=== PATIENT | male | born 1955 | race African-American/Black ===

== ENCOUNTER 2016-10-08 05:31 | Emergency (ER) | payer OTHER ==
[~2016-10-08] VITALS: Ht 188 cm; Wt 73.0 kg
[2016-10-08 05:34] VITALS: BP 146/71; PULSE 101; RESP 15; TEMP 100.8; O2SAT 96
[2016-10-08 05:42] VITALS: BP 136/77; PULSE 98; TEMP 100.8; O2SAT 96
[2016-10-08] MEDS ORDERED: OXYC1TAB63 PO (05:44)
[2016-10-08] MEDS ORDERED: AUGM875T3 PO (05:44)
[2016-10-08 05:48] VITALS: TEMP 100.4
[2016-10-08] MEDS ORDERED: KETOROLAC TROMETHAMINE 30 MG/ML (IVP) VIAL IV PUSH ONE (06:00)
[2016-10-08] MEDS ORDERED: SODIUM CHLOR 0.9% 1000 ML INJ 1,000 ML IV ONE (06:00)
[2016-10-08] MEDS ORDERED: ONDANSETRON HCL 4 MG/2 ML VIAL IV ONE (06:00)
--- NOTE | 2016-10-08 06:01 | PD ---
HPI Chief Complaint: Fever Time Seen by Provider: 05:41 Travel History International Travel<30 days: Yes ([facility]) Contact w/Intl Traveler<30days: Yes Traveled to known affect area: No History of Present Illness HPI Pleasant 61-year-old male here with complaint of fever. Patient traveled to [place] to visit family and friends. He is originally from [place] but lives here in the [facility]. He returned on 10/02. He was feeling well until 10/05 when he developed generalized body aches, fevers and chills. notes that he's been having fevers up to 103. He does respond to Tylenol, Motrin but the fever promptly returns. He does not have any localizing symptoms, no chest pain, chest congestion, shortness of breath, abdominal pain, urinary symptoms. He does have some nausea and states that he feels as though he would be less symptomatic if he could vomit but has not thrown up. No neck stiffness. No recent sick contacts. Patient was seen yesterday at [facility]. He had blood work, CT of the head that showed possible mucosal thickening of the sinus and was diagnosed with sinusitis. Given prescription for Augmentin which she has taken 1 dose of. PFSH Past Medical History Medical History: Denies Significant Hx Past Surgical History Appendectomy: Yes Social History Alcohol Use: Yes ([facility]) Tobacco Use: No Substance Use: No Allergies-Medications (Allergen,Severity, Reaction): Coded Allergies: No Known Allergies (Unverified , 10/08/16) Reported Meds & Prescriptions Reported Meds & Active Scripts Active Reported Oxycodone-Acetaminophen 5-325 mg Tab 1 Tab PO Q6H PRN Augmentin (Amoxicillin-Clavulanate) 875-125 Mg Tab 1 Tab PO BID Review of Systems Except as stated in HPI: all other systems reviewed are Neg Physical Exam Narrative GENERAL: Well-appearing male in no acute distress SKIN: Skin is warm, diaphoretic HEAD: Normocephalic. EYES: No scleral icterus. No injection or drainage. ENT: No nasal bleeding or discharge. Mucous membranes pink and moist. TMs clear bilaterally. No tenderness palpation of sinuses NECK: Without nuchal rigidity CARDIOVASCULAR: Regular rate and rhythm. No murmur appreciated. RESPIRATORY: No accessory muscle use. Clear to auscultation. Breath sounds equal bilaterally. GASTROINTESTINAL: Abdomen soft, non-tender, nondistended. MUSCULOSKELETAL: No obvious deformities. No edema. NEUROLOGICAL: Awake and alert. Normal speech. PSYCHIATRIC: Appropriate mood and affect; insight and judgment normal. Data Data Last Documented VS Vital Signs Date Time Temp Pulse Resp B/P Pulse Ox O2 Delivery O2 Flow Rate FiO2 10/08/16 06:17 97 Room Air 10/08/16 05:48 100.4 10/08/16 05:42 98 136/77 10/08/16 05:34 15 Orders Complete Blood Count With Diff (10/08/16 05:49) Comprehensive Metabolic Panel (10/08/16 05:49) Lactic Acid Sepsis Protocol (10/08/16 05:49) Lipase (10/08/16 05:49) Blood Culture (10/08/16 05:49) Chest, Single Ap (10/08/16 05:49) Ecg Monitoring (10/08/16 05:49) Iv Access Insert/Monitor (10/08/16 05:49) Oximetry (10/08/16 05:49) Ondansetron Inj (Zofran Inj) (10/08/16 06:00) Ketorolac Inj (Toradol Inj) (10/08/16 06:00) Sodium Chlor 0.9% 1000 Ml Inj (Ns 1000 M (10/08/16 06:00) Labs Laboratory Tests Test 10/08/16 10/08/16 05:55 06:05 White Blood Count 8.6 TH/MM3 Red Blood Count 5.40 MIL/MM3 Hemoglobin 12.5 GM/DL Hematocrit 38.4 % Mean Corpuscular Volume 71.1 FL Mean Corpuscular Hemoglobin 23.1 PG Mean Corpuscular Hemoglobin 32.5 % Concent Red Cell Distribution Width 14.5 % Platelet Count 188 TH/MM3 Mean Platelet Volume 8.4 FL Neutrophils (%) (Auto) 79.8 % Lymphocytes (%) (Auto) 10.5 % Monocytes (%) (Auto) 9.1 % Eosinophils (%) (Auto) 0.3 % Basophils (%) (Auto) 0.3 % Neutrophils # (Auto) 6.9 TH/MM3 Lymphocytes # (Auto) 0.9 TH/MM3 Monocytes # (Auto) 0.8 TH/MM3 Eosinophils # (Auto) 0.0 TH/MM3 Basophils # (Auto) 0.0 TH/MM3 CBC Comment DIFF FINAL Differential Comment Sodium Level 137 MEQ/L Potassium Level 3.8 MEQ/L Chloride Level 104 MEQ/L Carbon Dioxide Level 23.4 MEQ/L Anion Gap 10 MEQ/L Blood Urea Nitrogen 13 MG/DL Creatinine 1.41 MG/DL Estimat Glomerular Filtration 62 ML/MIN Rate Random Glucose 133 MG/DL Calcium Level 8.3 MG/DL Total Bilirubin 1.0 MG/DL Aspartate Amino Transf 22 U/L (AST/SGOT) Alanine Aminotransferase 42 U/L (ALT/SGPT) Alkaline Phosphatase 102 U/L Total Protein 7.3 GM/DL Albumin 3.2 GM/DL Lipase 134 U/L Lactic Acid Level 1.2 mmol/L MDM Medical Decision Making Medical Screen Exam Complete: Yes Emergency Medical Condition: Yes Medical Record Reviewed: Yes Differential Diagnosis 61-year-old male here with fever and flulike symptoms 3 days. Differential includes viral syndrome, influenza. Less likely sinusitis, meningitis, intra- abdominal pathology, pneumonia or bacteremia. Narrative Course Patient placed on monitor, IV established and blood obtained. Given 1 L normal saline bolus, 4 mg Zofran, 30 mg Toradol. Portable chest x-ray obtained that by my read shows left-sided pneumonia. CBC, CMP, lipase, lactate and blood cultures are unremarkable. Patient was given dose Rocephin will be discharged home with azithromycin Diagnosis Primary Impression: Left lower lobe pneumonia Qualified Code: J18.1 - Pneumonia of left lower lobe due to infectious organism Referrals: Primary Care Physician as needed Additional Instructions: Finish antibiotics as prescribed. Return to the ER for the warning signs discussed. Med/Other Pt SpecificInfo: Prescription(s) given Scripts Azithromycin (Zithromax Z-Anand)250 Mg [id number] Mg PO DIRECTED #1 DSPK Ref 0 500 MG (2 tabs) day 1, then 1 tab days 2-5. Prov:Zoila Yuan MD 10/08/16 Disposition: 01 DISCHARGE HOME Condition: Stable Zoila Yuan MD Oct 08, 2016 06:01
[2016-10-08 06:08] LABS: AUTOMATED NEUTROPHIL # 6.9 TH/MM3 (1.8-7.7); BASOPHIL % 0.3 % (0.0-2.0); EOSINOPHIL % 0.3 % (0.0-4.0); HEMATOCRIT 38.4 % (39.0-51.0); HEMO FLAGS DIFF FINAL; LYMPH % 10.5 % (9.0-44.0); LYMPHOCYTE # 0.9 TH/MM3 (1.0-4.8); MEAN CELL VOLUME 71.1 FL (80.0-100.0); MEAN CORPUSCULAR HEMOGLOBIN 23.1 PG (27.0-34.0); MEAN CORPUSCULAR HGB CONC 32.5 % (32.0-36.0); MONO % 9.1 % (0.0-8.0); NEUT % 79.8 % (16.0-70.0); PLATELET COUNT 188 TH/MM3 (150-450); RED CELL DISTRIBUTION WIDTH 14.5 % (11.6-17.2); WHITE BLOOD COUNT 8.6 TH/MM3 (4.0-11.0)
[2016-10-08 06:31] LABS: ANION GAP 10 MEQ/L (5-15); AST (GOT) 22 U/L (15-37); BICARBONATE 23.4 MEQ/L (21.0-32.0); BLOOD UREA NITROGEN 13 MG/DL (7-18); CHLORIDE 104 MEQ/L (98-107); GLOMERULAR FILTRATION RATE 62 ML/MIN (>89); POTASSIUM 3.8 MEQ/L (3.5-5.1); SODIUM (NA) 137 MEQ/L (136-145)
[2016-10-08 06:32] LABS: ALT (GPT) 42 U/L (12-78)
[2016-10-08 06:34] LABS: ALKALINE PHOSPHATASE 102 U/L (45-117)
--- NOTE | 2016-10-08 06:35 | RADRPT ---
EXAM DATE/TIME: 10/08/2016 05:52 [facility] COMPARISON: No previous studies available for comparison. INDICATIONS : Pt having chest pain MEDICAL HISTORY : None. SURGICAL HISTORY : None. ENCOUNTER: Initial ACUITY: 1 day PAIN SCORE: 5/10 LOCATION: Bilateral chest FINDINGS: A single view of the chest demonstrates focal dense consolidation at the left lung base laterally mos t characteristic of bronchopneumonia. No effusion. No pneumothorax. Heart size mildly enlarged. Right lung relatively clear. CONCLUSION: 1. Focal left basilar lung consolidation most characteristic of bronchopneumonia. Dimitri Moreno MD on October 08, 2016 at 6:32 Board Certified Radiologist. This report was verified electronically.
[2016-10-08] MEDS ORDERED: ZITHTAB PO (06:44)
[2016-10-08] MEDS ORDERED: cefTRIAXone INJ 1,000 MG in SODIUM CHLORIDE 0.9% INJ 100 ML IV ONE (06:45)
[2016-10-08 07:10] VITALS: RESP 18
== END 2016-10-08 07:00 | disposition home or self-care (01) ==
LOC: NEPE 05:31
DX: J18.1 Lobar pneumonia, unspecified organism (principal); R52 Pain, unspecified
CPT/HCPCS: 71010; 80053; 83605; 83690; 85025; 87040; J0696; J1885; J2405; J7030

== ENCOUNTER 2016-10-08 17:20 | Inpatient (IN) | payer OTHER ==
[~2016-10-08] VITALS: Ht 198.1 cm; Wt 112.0 kg
[~2016-10-08 17:20] MED LIST: AUGM875T3 PO; OXYC1TAB63 PO; ZITHTAB PO
[2016-10-08 17:22] VITALS: BP 150/85; PULSE 105; RESP 28; TEMP 102.8; O2SAT 97
--- NOTE | 2016-10-08 17:31 | PD ---
Physical Exam Date Seen by Provider: Oct 08, 2016 Time Seen by Provider: 17:29 Data Data Last Documented VS Vital Signs Date Time Temp Pulse Resp B/P Pulse Ox O2 Delivery O2 Flow Rate FiO2 10/08/16 17:22 102.8 105 28 150/85 97 Room Air MDM Supervised Visit with GAGAN: No Narrative Course 61 YO M with complaint of fever, N/V, SOB, dizziness. Taking azithromycin. 600mg Advil ~45 minutes ago. Seen this morning for LLL PNA. Patient febrile, tachycardic, tachypneic, O2 sat 97% in triage. Awaiting bed placement. Adrianne Osborn Oct 08, 2016 17:31
[2016-10-08] MEDS ORDERED: SODIUM CHLOR 0.9% 1000 ML INJ 1,000 ML IV ONE (18:45)
[2016-10-08] MEDS ORDERED: ONDANSETRON HCL 4 MG/2 ML VIAL IV PUSH ONE (18:45)
[2016-10-08] MEDS ORDERED: ACETAMINOPHEN 325 MG TAB PO ONE (18:45)
--- NOTE | 2016-10-08 18:48 | PD ---
HPI Chief Complaint: Fever Time Seen by Provider: 18:24 Travel History International Travel<30 days: No Contact w/Intl Traveler<30days: No Traveled to known affect area: No History of Present Illness HPI 61-year-old male complaining generalized malaise and weakness dizziness fever or shortness of breath and body ache. Patient just returned from [place] on October 02. Patient started developing fever and body ache chills and generalized malaise 3 days ago. Patient was seen in the emergency room at [facility] in [facility] yesterday. Patient states that he had blood tests an x-ray done and CT scan which showed sinusitis. Patient was discharged and given prescription for Augmentin. Patient was seen this morning in emergency room with worsening of the symptoms. Blood tests were done this morning and chest x-ray showed left lower lobe pneumonia. Patient was given Rocephin IV, IV fluid and discharged home with prescription for Zithromax. Patient states that he feeling worse this evening and started having nausea vomiting. Patient took the Zithromax prior coming to back to the emergency room. Patient states that he had fever up to 103 at home. Patient has been taking Advil for fever at home. PFSH Past Surgical History Appendectomy: Yes Social History Alcohol Use: Yes (occ) Tobacco Use: No Substance Use: No Allergies-Medications (Allergen,Severity, Reaction): Coded Allergies: No Known Allergies (Unverified , 10/08/16) Reported Meds & Prescriptions Reported Meds & Active Scripts Active Zithromax Z-Anand (Azithromycin) 250 Mg Dspk 250 Mg PO DIRECTED 500 MG (2 tabs) day 1, then 1 tab days 2-5. Reported Oxycodone-Acetaminophen 5-325 mg Tab 1 Tab PO Q6H PRN Augmentin (Amoxicillin-Clavulanate) 875-125 Mg Tab 1 Tab PO BID Review of Systems General / Constitutional: Positive: Fever, Chills Eyes: No: Visual changes HENT: No: Headaches Cardiovascular: No: Chest Pain or Discomfort Respiratory: No: Shortness of Breath Gastrointestinal: Positive: Nausea, Vomiting, No: Abdominal Pain Genitourinary: No: Dysuria Musculoskeletal: No: Pain Skin: No Rash Neurologic: No: Weakness Psychiatric: No: Depression Endocrine: No: Polydipsia Hematologic/Lymphatic: No: Easy Bruising Physical Exam Narrative GENERAL: Well-nourished, well-developed patient. SKIN: Focused skin assessment warm/dry. HEAD: Normocephalic. EYES: No scleral icterus. No injection or drainage. NECK: Supple, trachea midline. No JVD or lymphadenopathy. CARDIOVASCULAR: Regular rate and rhythm without murmurs, gallops, or rubs. RESPIRATORY: Breath sounds equal bilaterally. No accessory muscle use. GASTROINTESTINAL: Abdomen soft, non-tender, nondistended. MUSCULOSKELETAL: No cyanosis, or edema. BACK: Nontender without obvious deformity. No CVA tenderness. Neurologic exam normal. Data Data Last Documented VS Vital Signs Date Time Temp Pulse Resp B/P Pulse Ox O2 Delivery O2 Flow Rate FiO2 10/08/16 20:07 99.2 80 16 137/76 99 Room Air Orders Electrocardiogram (10/08/16 18:35) Complete Blood Count With Diff (10/08/16 18:35) Comprehensive Metabolic Panel (10/08/16 18:35) Prothrombin Time / Inr (Pt) (10/08/16 18:35) Act Partial Throm Time (Ptt) (10/08/16 18:35) Urinalysis - C+S If Indicated (10/08/16 18:35) Iv Access Insert/Monitor (10/08/16 18:35) Ecg Monitoring (10/08/16 18:35) Oximetry (10/08/16 18:35) Sodium Chlor 0.9% 1000 Ml Inj (Ns 1000 M (10/08/16 18:45) Ondansetron Inj (Zofran Inj) (10/08/16 18:45) Acetaminophen (Tylenol) (10/08/16 18:45) Labs Laboratory Tests Test 10/08/16 18:56 White Blood Count 10.0 TH/MM3 Red Blood Count 5.19 MIL/MM3 Hemoglobin 11.8 GM/DL Hematocrit 37.6 % Mean Corpuscular Volume 72.5 FL Mean Corpuscular Hemoglobin 22.6 PG Mean Corpuscular Hemoglobin 31.2 % Concent Red Cell Distribution Width 14.5 % Platelet Count 183 TH/MM3 Mean Platelet Volume 8.8 FL Neutrophils (%) (Auto) 87.2 % Lymphocytes (%) (Auto) 5.0 % Monocytes (%) (Auto) 7.6 % Eosinophils (%) (Auto) 0.0 % Basophils (%) (Auto) 0.2 % Neutrophils # (Auto) 8.7 TH/MM3 Lymphocytes # (Auto) 0.5 TH/MM3 Monocytes # (Auto) 0.8 TH/MM3 Eosinophils # (Auto) 0.0 TH/MM3 Basophils # (Auto) 0.0 TH/MM3 CBC Comment DIFF FINAL Differential Comment Prothrombin Time 12.8 SEC Prothromb Time International 1.2 RATIO Ratio Activated Partial 28.8 SEC Thromboplast Time Sodium Level 136 MEQ/L Potassium Level 4.0 MEQ/L Chloride Level 104 MEQ/L Carbon Dioxide Level 23.1 MEQ/L Anion Gap 9 MEQ/L Blood Urea Nitrogen 13 MG/DL Creatinine 1.47 MG/DL Estimat Glomerular Filtration 59 ML/MIN Rate Random Glucose 190 MG/DL Calcium Level 8.1 MG/DL Total Bilirubin 0.9 MG/DL Aspartate Amino Transf 18 U/L (AST/SGOT) Alanine Aminotransferase 34 U/L (ALT/SGPT) Alkaline Phosphatase 102 U/L Total Protein 6.9 GM/DL Albumin 3.0 GM/DL MDM Medical Decision Making Medical Screen Exam Complete: Yes Emergency Medical Condition: Yes Interpretation(s) 2019 p.m. CBC WBC 10.0. Hemoglobin 11.8 hematocrit 37.6. MCV 72.5. 82 neutrophil. BUN 13. Creatinine 1.47. Glucose 119. Differential Diagnosis Differential diagnosis including pneumonia, sinusitis, sepsis, dehydration, electrolyte imbalance. Narrative Course 61-year-old male with fever, chills, nausea vomiting generalized malaise and weakness and body ache. Patient was seen in emergency room yesterday at [facility] and this morning in emergency room at [place]. Patient was given prescription for Augmentin at [facility]. Patient was given Rocephin IV and prescription for Zithromax this morning. Patient states that he has persistent fever and worsening of the symptoms. Normal saline solution 1 L IV bolus. Zofran 4 mg IV. Diagnosis Primary Impression: Left lower lobe pneumonia Qualified Code: J18.1 - Pneumonia of left lower lobe due to infectious organism Additional Impressions: Sinusitis Qualified Code: J01.90 - Acute non-recurrent sinusitis, unspecified location Failure of outpatient treatment Admitting Information Admitting Physician Requests: Admit Yogi Waters MD Oct 08, 2016 18:47
[2016-10-08 19:05] VITALS: O2SAT 96
[2016-10-08 19:20] LABS: AUTOMATED NEUTROPHIL # 8.7 TH/MM3 (1.8-7.7); BASOPHIL % 0.2 % (0.0-2.0); HEMATOCRIT 37.6 % (39.0-51.0); HEMO FLAGS DIFF FINAL; LYMPHOCYTE # 0.5 TH/MM3 (1.0-4.8); MEAN CELL VOLUME 72.5 FL (80.0-100.0); MEAN CORPUSCULAR HEMOGLOBIN 22.6 PG (27.0-34.0); MEAN CORPUSCULAR HGB CONC 31.2 % (32.0-36.0); MONO % 7.6 % (0.0-8.0); NEUT % 87.2 % (16.0-70.0); PLATELET COUNT 183 TH/MM3 (150-450); RED BLOOD COUNT 5.19 MIL/MM3 (4.50-5.90); RED CELL DISTRIBUTION WIDTH 14.5 % (11.6-17.2)
[2016-10-08 19:30] LABS: APTT (PATIENT) 28.8 SEC (24.3-30.1); INTERNATIONAL NORMALIZED RATIO 1.2 RATIO; PROTHROMBIN TIME - PATIENT 12.8 SEC (9.8-11.6)
[2016-10-08 19:45] LABS: ANION GAP 9 MEQ/L (5-15); AST (GOT) 18 U/L (15-37); BICARBONATE 23.1 MEQ/L (21.0-32.0); BLOOD UREA NITROGEN 13 MG/DL (7-18); CHLORIDE 104 MEQ/L (98-107); GLOMERULAR FILTRATION RATE 59 ML/MIN (>89); SODIUM (NA) 136 MEQ/L (136-145)
[2016-10-08 19:46] LABS: ALT (GPT) 34 U/L (12-78)
[2016-10-08 19:48] LABS: ALKALINE PHOSPHATASE 102 U/L (45-117); TOTAL BILIRUBIN ADULT 0.9 MG/DL (0.2-1.0)
[2016-10-08 20:07] VITALS: BP 137/76; PULSE 80; RESP 16; TEMP 99.2; O2SAT 99
[2016-10-08 20:33] LABS: BLOOD, URINE NEG (NEG); COMMENT (UR) CULT NOT INDICATED; CULTURE IF INDICATED CULT NOT INDICATED; GLUCOSE,URINE 70 mg/dL (NEG); KETONE, URINE 10 mg/dL (NEG); MUCUS URINE FEW /lpf (OCC); NITRITE,URINE NEG (NEG); PH, URINE 6.5 (5.0-8.5); URINE COLOR YELLOW (YELLW/STRAW)
[2016-10-08] MEDS ORDERED: ONDANSETRON HCL 4 MG/2 ML VIAL IV PRN (21:00)
[2016-10-08] MEDS ORDERED: SODIUM CHLORIDE 0.9% FLUSH 10 ML FLUSH IVF PRN (21:00)
--- NOTE | 2016-10-08 21:11 | HHI.HP ---
HPI Service [facility] Hospitalists Primary Care Physician Cristian Rodríguez M.D. Admission Diagnosis pneumonia. Sinusitis. Chief Complaint: 3 days malise fever with failed outpatient treatment Travel History International Travel<30 Days: No Contact w/Intl Traveler <30 Da: No Traveled to Known Affected Are: No History of Present Illness 61-year-old male complaining generalized malaise and weakness dizziness fever or shortness of breath and body ache. Patient just returned from [place] on October 02. Patient started developing fever and body ache chills and generalized malaise 3 days ago. Patient was seen in the emergency room at [facility] in [facility] yesterday. Patient states that he had blood tests an x-ray done and CT scan which showed sinusitis. Patient was discharged and given prescription for Augmentin and according to patient percocet.. Patient was seen this morning in emergency room with worsening of the symptoms. Blood tests were done this morning and chest x-ray showed left lower lobe pneumonia. Patient was given Rocephin IV, IV fluid and discharged home with prescription for Zithromax. Patient states that he feeling worse this evening and started having nausea vomiting. Patient took the Zithromax prior coming to back to the emergency room. Patient states that he had fever up to 103 at home. Patient has been taking Advil for fever at home. Patient will be admitted for IV antibiotics and prn zofran and hold percocet which may becontributing to his symptoms . Patient states he takes sleeping pill at night. [facility] Review of Systems Constitutional: COMPLAINS OF: Fatigue, Fever, Chills, Dizziness Gastrointestinal: COMPLAINS OF: Nausea, Vomiting Past Family Social History Past Medical History no significant history Past Surgical History appendix Reported Medications zithromax,augmentin percocet Allergies: Coded Allergies: No Known Allergies (Unverified , 10/08/16) Social History occ etoh Physical Exam Vital Signs Vital Signs Date Time Temp Pulse Resp B/P Pulse Ox O2 Delivery O2 Flow Rate FiO2 10/08/16 20:07 99.2 80 16 137/76 99 Room Air 10/08/16 19:05 96 Room Air 10/08/16 17:22 102.8 105 28 150/85 97 Room Air Physical Exam GENERAL: This is a well-nourished, well-developed patient, in no apparent distress. SKIN: No rashes, ecchymoses or lesions. Cool and dry. HEAD: Atraumatic. Normocephalic. No temporal or scalp tenderness. EYES: Pupils equal round and reactive. Extraocular motions intact. No scleral icterus. No injection or drainage. ENT: Nose without bleeding, purulent drainage or septal hematoma. Throat without erythema, tonsillar hypertrophy or exudate. Uvula midline. Airway patent. NECK: Trachea midline. No JVD or lymphadenopathy. Supple, nontender, no meningeal signs. CARDIOVASCULAR: Regular rate and rhythm without murmurs, gallops, or rubs. RESPIRATORY: Clear to auscultation. Breath sounds equal bilaterally. No wheezes , rales, or rhonchi. GASTROINTESTINAL: Abdomen soft, non-tender, nondistended. No hepato-splenomegaly , or palpable masses. No guarding. MUSCULOSKELETAL: Extremities without clubbing, cyanosis, or edema. No joint tenderness, effusion, or edema noted. No calf tenderness. Negative Homans sign bilaterally. NEUROLOGICAL: Awake and alert. Cranial nerves II through XII intact. Motor and sensory grossly within normal limits. Five out of 5 muscle strength in all muscle groups. Normal speech. Laboratory Laboratory Tests Test 10/08/16 10/08/16 18:56 19:15 White Blood Count 10.0 Red Blood Count 5.19 Hemoglobin 11.8 Hematocrit 37.6 Mean Corpuscular Volume 72.5 Mean Corpuscular Hemoglobin 22.6 Mean Corpuscular Hemoglobin 31.2 Concent Red Cell Distribution Width 14.5 Platelet Count 183 Mean Platelet Volume 8.8 Neutrophils (%) (Auto) 87.2 Lymphocytes (%) (Auto) 5.0 Monocytes (%) (Auto) 7.6 Eosinophils (%) (Auto) 0.0 Basophils (%) (Auto) 0.2 Neutrophils # (Auto) 8.7 Lymphocytes # (Auto) 0.5 Monocytes # (Auto) 0.8 Eosinophils # (Auto) 0.0 Basophils # (Auto) 0.0 CBC Comment DIFF FINAL Differential Comment Prothrombin Time 12.8 Prothromb Time International 1.2 Ratio Activated Partial 28.8 Thromboplast Time Sodium Level 136 Potassium Level 4.0 Chloride Level 104 Carbon Dioxide Level 23.1 Anion Gap 9 Blood Urea Nitrogen 13 Creatinine 1.47 Estimat Glomerular Filtration 59 Rate Random Glucose 190 Calcium Level 8.1 Total Bilirubin 0.9 Aspartate Amino Transf 18 (AST/SGOT) Alanine Aminotransferase 34 (ALT/SGPT) Alkaline Phosphatase 102 Total Protein 6.9 Albumin 3.0 Urine Color YELLOW Urine Turbidity CLEAR Urine pH 6.5 Urine Specific [place] 1.026 Urine Protein 30 Urine Glucose (UA) 70 Urine Ketones 10 Urine Occult Blood NEG Urine Nitrite NEG Urine Bilirubin NEG Urine Urobilinogen 8.0 Urine Leukocyte Esterase NEG Urine RBC 1 Urine WBC 2 Urine Mucus FEW Microscopic Urinalysis Comment CULT NOT INDICATED Result Diagram: 10/08/16185510/08/161855 Imaging cxr earlier today left lower lobe infiltrate CT yesterday at [facility] sinusitis Course in er will start IV zithromax and iv fluid Assessment and Plan Problem List: (1) Left lower lobe pneumonia Status: Acute Plan: continue IV rocephin and IV zithromax follow up chest xray (2) Sinusitis Status: Acute Plan: continue antibiotic as above try obtain CT result and may need ENT evaluation (3) Failure of outpatient treatment Status: Acute Plan: as above Assessment and Plan further plan as case develops Code Status full Discussed Condition With patient Physician Certification 2 Midnight Certification Type: Admission for Inpatient Services Order for Inpatient Services The services are ordered in accordance with Medicare regulations or non- Medicare payer requirements, as applicable. In the case of services not specified as inpatient-only, they are appropriately provided as inpatient services in accordance with the 2-midnight benchmark. Estimated LOS (days): 3 3 days is the estimated time the patient will need to remain in the hospital, assuming treatment plan goals are met and no additional complications. Post-Hospital Plan: Home Problem Qualifiers (1) Left lower lobe pneumonia: Qualified Code: J18.1 - Pneumonia of left lower lobe due to infectious organism (2) Sinusitis: Qualified Code: J01.90 - Acute non-recurrent sinusitis, unspecified location Miller Camacho MD Oct 08, 2016 21:11
[2016-10-08] MEDS: cefTRIAXone INJ 1,000 MG in SODIUM CHLORIDE 0.9% INJ 100 ML IV SCH (21:30)
[2016-10-08] MEDS: SODIUM CHLORIDE 0.9% FLUSH 10 ML FLUSH IV FLUSH SCH (21:30)
[2016-10-08] MEDS ORDERED: AZITHROMYCIN INJ 500 MG in SODIUM CHLOR 0.9% 250 ML INJ 250 ML IV SCH (22:00)
[2016-10-08 22:49] VITALS: BP 151/84; PULSE 84; RESP 18; TEMP 98.3; O2SAT 99
[2016-10-08 23:00] VITALS: PULSE 86
[2016-10-08] MEDS: ZOLPIDEM TARTRATE 10 MG TAB PO PRN (23:21)
[2016-10-08] MEDS: ACETAMINOPHEN 325 MG TAB PO PRN (23:21)
[2016-10-09] VITALS (10 sets, daily range): BP systolic 136–165; BP diastolic 68–84; PULSE 80–93; RESP 18–20; TEMP 99.6–102.4; O2SAT 92–98
[2016-10-09] MEDS: ACETAMINOPHEN 325 MG TAB PO PRN ×4 (03:09→18:03)
[2016-10-09] MEDS: cefTRIAXone INJ 1,000 MG in SODIUM CHLORIDE 0.9% INJ 100 ML IV SCH (05:02)
[2016-10-09 07:08] LABS: AUTOMATED NEUTROPHIL # 6.6 TH/MM3 (1.8-7.7); BASOPHIL % 0.3 % (0.0-2.0); EOSINOPHIL % 0.1 % (0.0-4.0); HEMATOCRIT 37.1 % (39.0-51.0); HEMO FLAGS DIFF FINAL; LYMPH % 10.5 % (9.0-44.0); LYMPHOCYTE # 0.9 TH/MM3 (1.0-4.8); MEAN CELL VOLUME 71.9 FL (80.0-100.0); MEAN CORPUSCULAR HEMOGLOBIN 22.6 PG (27.0-34.0); MEAN CORPUSCULAR HGB CONC 31.4 % (32.0-36.0); MONO % 8.3 % (0.0-8.0); NEUT % 80.8 % (16.0-70.0); PLATELET COUNT 172 TH/MM3 (150-450); RED BLOOD COUNT 5.15 MIL/MM3 (4.50-5.90); RED CELL DISTRIBUTION WIDTH 14.7 % (11.6-17.2); WHITE BLOOD COUNT 8.1 TH/MM3 (4.0-11.0)
[2016-10-09] MEDS: SODIUM CHLORIDE 0.9% FLUSH 10 ML FLUSH IV FLUSH SCH ×2 (07:58→20:05)
--- NOTE | 2016-10-09 08:56 | RADRPT ---
EXAM DATE/TIME: 10/09/2016 08:23 [facility] COMPARISON: CHEST SINGLE AP, October 08, 2016, 5:52. INDICATIONS : Short of Breath MEDICAL HISTORY : None. SURGICAL HISTORY : None. ENCOUNTER: Subsequent ACUITY: 2 days PAIN SCORE: 0/10 LOCATION: Bilateral chest FINDINGS: PA and lateral views of the chest demonstrate persistent left lateral basilar airspace consolidation. Probable associated atelectasis at both bases on today's exam. No significant effusion. CONCLUSION: 1. Persistent left basilar lung consolidation. Bibasilar atelectasis. Dimitri Moreno MD on October 09, 2016 at 8:52 Board Certified Radiologist. This report was verified electronically.
[2016-10-09] MEDS ORDERED: SODIUM CHLOR 0.9% 1000 ML INJ 1,000 ML IV ONE (12:00)
[2016-10-09] MEDS: RESP: ACETYLCYSTEINE 20% 30 ML NEB NEB SCH ×3 (12:00→19:31)
[2016-10-09] MEDS ORDERED: guaiFENesin E.R. 600 MG TAB PO ONE (12:00)
--- NOTE | 2016-10-09 12:19 | EKG ---
Date Performed: 10/08/2016 Time Performed: 20:01:04 PTAGE: 61 years EKG: Sinus rhythm POSSIBLE LEFT ATRIAL ENLARGEMENT BORDERLINE ECG NO PREVIOUS TRACING DOCTOR: Neo Terry Interpretating Date/Time 10/09/2016 12:15:39
[2016-10-09] MEDS: LEVOFLOXACIN 750 MG PREMIX INJ 150 ML IV SCH (12:29)
--- NOTE | 2016-10-09 12:47 | HHI.PR ---
Subjective Remarks Pt still feels bad. cough/congestion..nonproductive headache when coughing. body ache. no n/v/d still with fevers. Objective Vitals lying in bed oriented.looks weak no labored breathing heart reg lung rhonci more rul abd s/nt ext no edema Vital Signs Date Time Temp Pulse Resp B/P Pulse Ox O2 Delivery O2 Flow Rate FiO2 10/09/16 12:00 99.6 82 20 165/68 92 10/09/16 08:14 85 10/09/16 08:00 100.8 86 20 165/83 97 10/09/16 07:59 Room Air 10/09/16 07:37 95 21 10/09/16 04:00 Room Air 10/09/16 04:00 100.0 85 18 147/73 96 10/09/16 03:11 101.9 10/09/16 00:00 Room Air 10/09/16 00:00 102.4 93 18 136/73 95 10/08/16 23:00 86 10/08/16 22:49 Room Air 10/08/16 22:49 98.3 84 18 151/84 99 10/08/16 20:07 99.2 80 16 137/76 99 Room Air 10/08/16 19:05 96 Room Air 10/08/16 17:22 102.8 105 28 150/85 97 Room Air 10/08/16 10/08/16 10/09/16 15:00 23:00 07:00 Intake Total 250 ml 240 ml Balance 250 ml 240 ml Intake Oral 240 ml IV Total 250 ml # Voids 1 # Bowel Movements 0 Result Diagram: 10/09/16 0556 10/08/16 1856 Imaging cxr earlier today left lower lobe infiltrate CT yesterday at [facility] sinusitis A/P Problem List: (1) Pneumonia Status: Acute Plan: Pt is 61 yo healthy male and no sig. pmh Traveled to [place] with family to a resort..traveled outside the resort 1d to hometown. Denies any obvious sick contacts. Returned home on 10/02 and developed headache, high fevers,body ache. seen at another hospital and dx with sinusitis. pt was on augmentin/azith. Now presents with persistent fever/body ache/now cough and sob/pneumonia on cxr which appears to be progressive and involved both lung..mostly left. Will start broad spectrum abx check blood cx, sputum cx, influenza ag's, urine ag for legionella/pneumococcus. duonebs and mucomyst gentle ivf and recheck his cr ct thorax today for better clarification of lung involvement and exlude complicated pna will most likely ask for ID consultation. dvt prophylaxis recheck Hermes Mccain MD Oct 09, 2016 12:47
[2016-10-09] MEDS ORDERED: ACETAMINOPHEN/HYDROcodone 325 MG/7.5 MG TAB PO PRN (14:30)
[2016-10-09] MEDS ORDERED: MORPHINE SULFATE 4 MG/ML INJ IV PUSH PRN (14:30)
[2016-10-09] MEDS: PIPERACIL-TAZO 3.375 GM PREMIX 50 ML IV SCH ×2 (14:40→20:06)
[2016-10-09] MEDS: RESP: ALBUTEROL 2.5 MG/IPRATROPIUM 0.5 MG NEB (SCH) NEB ×3 (15:07→22:28)
--- NOTE | 2016-10-09 19:28 | RADRPT ---
EXAM DATE/TIME: 10/09/2016 19:09 [facility] COMPARISON: CHEST PA & LAT, October 09, 2016, 8:23. INDICATIONS : Chest pain; possible pneumonia. Follow up abnormal chest x-ray. RADIATION DOSE: 9.24 CTDIvol (mGy) MEDICAL HISTORY : None SURGICAL HISTORY : Appendectomy. ENCOUNTER: Subsequent ACUITY: 2 days PAIN SCALE: 6/10 LOCATION: chest TECHNIQUE: Volumetric scanning of the chest was performed. Using automated exposure control and adjustment of t he mA and/or kV according to patient size, radiation dose was kept as low as reasonably achievable to obtain optimal diagnostic quality images. FINDINGS: LUNGS: There is severe airspace consolidation in a segmental distribution in the posterior inferior left upp er lobe. Atelectasis is present in the left lower lobe. No pneumothorax is present. PLEURAE: There is trace left pleural fluid. MEDIASTINUM: The heart and great vessels demonstrate no acute abnormality. There is no mediastinal or hilar lymph adenopathy visualized on this noncontrast exam. AXILLAE: Within normal limits. No lymphadenopathy. MUSCULOSKELETAL: No acute finding. MISCELLANEOUS: The visualized upper abdominal organs demonstrate no acute abnormality. CONCLUSION: Severe left upper lobe airspace consolidation with trace left pleural fluid. Imaging findings are tano racteristic of an infectious process/pneumonia in the appropriate clinical setting. Suggest followup imaging to confirm resolution. Klaus Dallas MD on October 09, 2016 at 19:23 Board Certified Radiologist. This report was verified electronically.
[2016-10-09] MEDS: guaiFENesin E.R. 600 MG TAB PO SCH (20:05)
[2016-10-09] MEDS: ZOLPIDEM TARTRATE 10 MG TAB PO PRN (21:49)
[2016-10-10] VITALS (9 sets, daily range): BP systolic 133–164; BP diastolic 67–91; PULSE 78–86; RESP 16–20; TEMP 97.8–101.4; O2SAT 94–97
[2016-10-10] MEDS: PIPERACIL-TAZO 3.375 GM PREMIX 50 ML IV SCH ×4 (01:01→20:48)
[2016-10-10] MEDS: ACETAMINOPHEN 325 MG TAB PO PRN ×2 (05:46→20:48)
[2016-10-10] MEDS: RESP: ACETYLCYSTEINE 20% 30 ML NEB NEB SCH ×4 (07:25→20:21)
[2016-10-10] MEDS: RESP: ALBUTEROL 2.5 MG/IPRATROPIUM 0.5 MG NEB (SCH) NEB ×4 (07:25→20:20)
[2016-10-10 08:16] LABS: AUTOMATED NEUTROPHIL # 4.3 TH/MM3 (1.8-7.7); BASOPHIL % 0.2 % (0.0-2.0); EOSINOPHIL % 0.2 % (0.0-4.0); HEMATOCRIT 35.1 % (39.0-51.0); HEMO FLAGS DIFF FINAL; LYMPH % 11.7 % (9.0-44.0); LYMPHOCYTE # 0.7 TH/MM3 (1.0-4.8); MEAN CELL VOLUME 70.5 FL (80.0-100.0); MEAN CORPUSCULAR HEMOGLOBIN 22.2 PG (27.0-34.0); MEAN CORPUSCULAR HGB CONC 31.5 % (32.0-36.0); MONO % 12.8 % (0.0-8.0); NEUT % 75.1 % (16.0-70.0); PLATELET COUNT 198 TH/MM3 (150-450); RED BLOOD COUNT 4.98 MIL/MM3 (4.50-5.90); RED CELL DISTRIBUTION WIDTH 14.2 % (11.6-17.2); WHITE BLOOD COUNT 5.8 TH/MM3 (4.0-11.0)
[2016-10-10 08:45] LABS: BICARBONATE 27.4 MEQ/L (21.0-32.0); POTASSIUM 3.7 MEQ/L (3.5-5.1)
[2016-10-10] MEDS: guaiFENesin E.R. 600 MG TAB PO SCH ×2 (08:55→20:48)
[2016-10-10] MEDS: SODIUM CHLORIDE 0.9% FLUSH 10 ML FLUSH IV FLUSH SCH ×2 (08:55→20:48)
[2016-10-10] MEDS: LEVOFLOXACIN 750 MG PREMIX INJ 150 ML IV SCH (11:53)
--- NOTE | 2016-10-10 15:18 | HHI.PR ---
Subjective Remarks Pt had fever this morning of 101.3 Still feeling quite unwell. Cough is unchanged and having some pleuritic pain with coughing. Objective Vitals Vital Signs Date Time Temp Pulse Resp B/P Pulse Ox O2 Delivery O2 Flow Rate FiO2 10/10/16 12:00 97.8 86 20 164/85 96 10/10/16 08:00 98.7 78 20 148/78 97 10/10/16 08:00 Room Air 10/10/16 08:00 79 10/10/16 07:27 94 21 10/10/16 05:49 101.3 81 18 149/89 95 10/10/16 05:49 Room Air 10/10/16 04:00 Room Air 10/10/16 00:25 98.8 86 17 133/67 97 10/09/16 20:46 86 10/09/16 20:00 Room Air 10/09/16 19:50 100.5 80 18 146/72 98 10/09/16 16:00 Room Air 10/09/16 16:00 100.9 88 20 141/84 94 10/09/16 10/09/16 10/10/16 15:00 23:00 07:00 Intake Total 240 ml 436 ml 700 ml Balance 240 ml 436 ml 700 ml Intake Oral 240 ml 700 ml IV Total 436 ml # Voids 3 3 # Bowel Movements 0 0 Result Diagram: 10/10/16 0655 10/10/16 0655 Other Results Laboratory Tests Test 10/08/16 10/08/16 10/09/16 10/10/16 18:56 19:15 05:56 06:55 White Blood Count 10.0 TH/MM3 8.1 TH/MM3 5.8 TH/MM3 Red Blood Count 5.19 MIL/MM3 5.15 MIL/MM3 4.98 MIL/MM3 Hemoglobin 11.8 GM/DL 11.7 GM/DL 11.1 GM/DL Hematocrit 37.6 % 37.1 % 35.1 % Mean Corpuscular Volume 72.5 FL 71.9 FL 70.5 FL Mean Corpuscular Hemoglobin 22.6 PG 22.6 PG 22.2 PG Mean Corpuscular Hemoglobin 31.2 % 31.4 % 31.5 % Concent Red Cell Distribution Width 14.5 % 14.7 % 14.2 % Platelet Count 183 TH/MM3 172 TH/MM3 198 TH/MM3 Mean Platelet Volume 8.8 FL 9.0 FL 9.0 FL Neutrophils (%) (Auto) 87.2 % 80.8 % 75.1 % Lymphocytes (%) (Auto) 5.0 % 10.5 % 11.7 % Monocytes (%) (Auto) 7.6 % 8.3 % 12.8 % Eosinophils (%) (Auto) 0.0 % 0.1 % 0.2 % Basophils (%) (Auto) 0.2 % 0.3 % 0.2 % Neutrophils # (Auto) 8.7 TH/MM3 6.6 TH/MM3 4.3 TH/MM3 Lymphocytes # (Auto) 0.5 TH/MM3 0.9 TH/MM3 0.7 TH/MM3 Monocytes # (Auto) 0.8 TH/MM3 0.7 TH/MM3 0.7 TH/MM3 Eosinophils # (Auto) 0.0 TH/MM3 0.0 TH/MM3 0.0 TH/MM3 Basophils # (Auto) 0.0 TH/MM3 0.0 TH/MM3 0.0 TH/MM3 CBC Comment DIFF FINAL DIFF FINAL DIFF FINAL Differential Comment Prothrombin Time 12.8 SEC Prothromb Time International 1.2 RATIO Ratio Activated Partial 28.8 SEC Thromboplast Time Sodium Level 136 MEQ/L 136 MEQ/L Potassium Level 4.0 MEQ/L 3.7 MEQ/L Chloride Level 104 MEQ/L 102 MEQ/L Carbon Dioxide Level 23.1 MEQ/L 27.4 MEQ/L Anion Gap 9 MEQ/L 7 MEQ/L Blood Urea Nitrogen 13 MG/DL 8 MG/DL Creatinine 1.47 MG/DL 1.29 MG/DL Estimat Glomerular Filtration 59 ML/MIN 69 ML/MIN Rate Random Glucose 190 MG/DL 121 MG/DL Calcium Level 8.1 MG/DL 8.3 MG/DL Total Bilirubin 0.9 MG/DL Aspartate Amino Transf 18 U/L (AST/SGOT) Alanine Aminotransferase 34 U/L (ALT/SGPT) Alkaline Phosphatase 102 U/L Total Protein 6.9 GM/DL Albumin 3.0 GM/DL Urine Color YELLOW Urine Turbidity CLEAR Urine pH 6.5 Urine Specific [place] 1.026 Urine Protein 30 mg/dL Urine Glucose (UA) 70 mg/dL Urine Ketones 10 mg/dL Urine Occult Blood NEG Urine Nitrite NEG Urine Bilirubin NEG Urine Urobilinogen 8.0 MG/DL Urine Leukocyte Esterase NEG Urine RBC 1 /hpf Urine WBC 2 /hpf Urine Mucus FEW /lpf Microscopic Urinalysis Comment CULT NOT INDICATED Imaging Last Impressions Chest X-Ray 10/09/16 0700 Signed Impressions: Service Date/Time: Sunday, October 09, 2016 08:23 - CONCLUSION: 1. Persistent left basilar lung consolidation. Bibasilar atelectasis. Dimitri Moreno MD Chest CT 10/09/16 0000 Signed Impressions: Service Date/Time: Sunday, October 09, 2016 19:09 - CONCLUSION: Severe left upper lobe airspace consolidation with trace left pleural fluid. Imaging findings are characteristic of an infectious process/pneumonia in the appropriate clinical setting. Suggest followup imaging to confirm resolution. Klaus Dallas MD Objective Remarks General: NAD Chest: Rhonchi in the RUL Cardiac: Regular Abd: +BS, soft ND/NT Ext: No edema A/P Problem List: (1) Pneumonia Status: Acute Plan: - Pt is 61 yo healthy male and no significant PMH - Pt traveled to [place] with family to a resort and traveled outside the resort 1d to hometown. - Denies any obvious sick contacts. - Returned home on 10/02 and developed headache, high fevers,body ache. - He was seen at another hospital and dx with sinusitis. Pt was on Augmentin/ Azithromycin. - He presented to the ED on 10/08 with persistent fever/body ache/now cough and sob/pneumonia - CXR (10/08) which appears to be progressive and involved both lung, but mostly left. - In the ED pt was given Azithromycin and Rocephin IV - Pt was started on Zosyn and Levaquin IV on 10/09 - Blood cultures (10/09) with NGTD - Sputum culture is ordered - Urine for Legionella and Step pneumoniae is negative. - CT Chest (10/09) --> Severe left upper lobe airspace consolidation with trace left pleural fluid. - Cont. Duonebs Q4H WA and Mucomyst Q4H WA - Mucinex BID - IVF stopped with improved renal function - DVT prophylaxis with SCDs Assessment and Plan Patient examined. Assessment and plan formulated with Devora Mo PA-C. I agree with the above. Devora Mo Oct 10, 2016 15:18 Christian Merlos DO Oct 14, 2016 16:11
[2016-10-10] MEDS: ZOLPIDEM TARTRATE 10 MG TAB PO PRN (20:48)
[2016-10-11] VITALS (9 sets, daily range): BP systolic 130–151; BP diastolic 60–96; PULSE 73–82; RESP 18–20; TEMP 98.4–99; O2SAT 94–97
[2016-10-11] MEDS: PIPERACIL-TAZO 3.375 GM PREMIX 50 ML IV SCH ×4 (02:51→20:51)
[2016-10-11] MEDS: guaiFENesin E.R. 600 MG TAB PO SCH ×2 (07:48→20:50)
[2016-10-11] MEDS: SODIUM CHLORIDE 0.9% FLUSH 10 ML FLUSH IV FLUSH SCH ×2 (07:48→20:50)
[2016-10-11] MEDS: RESP: ACETYLCYSTEINE 20% 30 ML NEB NEB SCH ×4 (08:11→19:00)
[2016-10-11] MEDS: RESP: ALBUTEROL 2.5 MG/IPRATROPIUM 0.5 MG NEB (SCH) NEB ×4 (08:11→19:00)
[2016-10-11] MEDS: LEVOFLOXACIN 750 MG PREMIX INJ 150 ML IV SCH (11:15)
--- NOTE | 2016-10-11 14:28 | HHI.PR ---
Subjective Remarks Pt reports that he is feeling slightly better today Still coughing but not able to bring much up. Afebrile Pain with coughing is improved with pain medication Objective Vitals Vital Signs Date Time Temp Pulse Resp B/P Pulse Ox O2 Delivery O2 Flow Rate FiO2 10/11/16 12:20 98.6 74 20 135/79 96 10/11/16 09:56 Room Air 21 10/11/16 08:11 94 21 10/11/16 08:00 99.0 73 20 151/89 96 10/11/16 04:00 Room Air 10/11/16 04:00 98.4 73 18 132/67 96 10/11/16 00:00 98.6 80 18 130/60 97 10/11/16 00:00 Room Air 10/10/16 20:22 96 21 10/10/16 20:00 101.4 81 16 161/86 97 10/10/16 20:00 Room Air 10/10/16 19:48 83 10/10/16 16:00 100.1 86 18 152/91 97 10/10/16 10/10/16 10/11/16 15:00 23:00 07:00 Intake Total 827 ml 100 ml 71 ml Output Total 775 ml Balance 827 ml 100 ml -704 ml Intake Oral 360 ml 0 ml 0 ml IV Total 467 ml 100 ml 71 ml Output Urine Total 775 ml # Voids 3 0 # Bowel Movements 0 0 0 Result Diagram: 10/10/16 0655 10/10/16 0655 Other Results Laboratory Tests Test 10/10/16 06:55 White Blood Count 5.8 TH/MM3 Red Blood Count 4.98 MIL/MM3 Hemoglobin 11.1 GM/DL Hematocrit 35.1 % Mean Corpuscular Volume 70.5 FL Mean Corpuscular Hemoglobin 22.2 PG Mean Corpuscular Hemoglobin 31.5 % Concent Red Cell Distribution Width 14.2 % Platelet Count 198 TH/MM3 Mean Platelet Volume 9.0 FL Neutrophils (%) (Auto) 75.1 % Lymphocytes (%) (Auto) 11.7 % Monocytes (%) (Auto) 12.8 % Eosinophils (%) (Auto) 0.2 % Basophils (%) (Auto) 0.2 % Neutrophils # (Auto) 4.3 TH/MM3 Lymphocytes # (Auto) 0.7 TH/MM3 Monocytes # (Auto) 0.7 TH/MM3 Eosinophils # (Auto) 0.0 TH/MM3 Basophils # (Auto) 0.0 TH/MM3 CBC Comment DIFF FINAL Differential Comment Sodium Level 136 MEQ/L Potassium Level 3.7 MEQ/L Chloride Level 102 MEQ/L Carbon Dioxide Level 27.4 MEQ/L Anion Gap 7 MEQ/L Blood Urea Nitrogen 8 MG/DL Creatinine 1.29 MG/DL Estimat Glomerular Filtration 69 ML/MIN Rate Random Glucose 121 MG/DL Calcium Level 8.3 MG/DL Imaging Last Impressions Chest X-Ray 10/09/16 0700 Signed Impressions: Service Date/Time: Sunday, October 09, 2016 08:23 - CONCLUSION: 1. Persistent left basilar lung consolidation. Bibasilar atelectasis. Dimitri Moreno MD Chest CT 10/09/16 0000 Signed Impressions: Service Date/Time: Sunday, October 09, 2016 19:09 - CONCLUSION: Severe left upper lobe airspace consolidation with trace left pleural fluid. Imaging findings are characteristic of an infectious process/pneumonia in the appropriate clinical setting. Suggest followup imaging to confirm resolution. Klaus Dallas MD Objective Remarks General: NAD Chest: Rhonchi in the RUL, better air movement bilaterally Cardiac: Regular Abd: +BS, soft ND/NT Ext: No edema A/P Problem List: (1) Pneumonia Status: Acute Plan: - Pt is 61 yo healthy male and no significant PMH - Pt traveled to [place] with family to a resort and traveled outside the resort 1d to hometown. - Denies any obvious sick contacts. - Returned home on 10/02 and developed headache, high fevers,body ache. - He was seen at another hospital and dx with sinusitis. Pt was on Augmentin/ Azithromycin. - He presented to the ED on 10/08 with persistent fever/body ache/now cough and sob/pneumonia - CXR (10/08) which appears to be progressive and involved both lung, but mostly left. - In the ED pt was given Azithromycin and Rocephin IV - Pt was started on Zosyn and Levaquin IV on 10/09 - Blood cultures (10/09) with NGTD - Sputum culture is ordered - Urine for Legionella and Step pneumoniae is negative. - CT Chest (10/09) --> Severe left upper lobe airspace consolidation with trace left pleural fluid. - Cont. Duonebs Q4H WA and Mucomyst Q4H WA - Mucinex BID - IVF stopped with improved renal function - DVT prophylaxis with SCDs Assessment and Plan Patient examined. Assessment and plan formulated with Devora Mo PA-C. I agree with the above. Devora Mo Oct 11, 2016 14:27 Christian Merlos DO Oct 14, 2016 16:11
[2016-10-11] MEDS: ZOLPIDEM TARTRATE 10 MG TAB PO PRN (21:27)
[2016-10-12] VITALS (10 sets, daily range): BP systolic 133–153; BP diastolic 67–87; PULSE 65–96; RESP 16–18; TEMP 97.7–98.5; O2SAT 94–98
[2016-10-12] MEDS: PIPERACIL-TAZO 3.375 GM PREMIX 50 ML IV SCH ×4 (02:35→20:00)
[2016-10-12 07:18] LABS: AUTOMATED NEUTROPHIL # 2.4 TH/MM3 (1.8-7.7); BASOPHIL % 0.6 % (0.0-2.0); EOSINOPHIL # 0.3 TH/MM3 (0-0.4); EOSINOPHIL % 5.9 % (0.0-4.0); HEMATOCRIT 35.2 % (39.0-51.0); HEMO FLAGS DIFF FINAL; LYMPH % 24.7 % (9.0-44.0); LYMPHOCYTE # 1.2 TH/MM3 (1.0-4.8); MEAN CELL VOLUME 69.4 FL (80.0-100.0); MEAN CORPUSCULAR HEMOGLOBIN 22.8 PG (27.0-34.0); MEAN CORPUSCULAR HGB CONC 32.8 % (32.0-36.0); NEUT % 50.8 % (16.0-70.0); PLATELET COUNT 282 TH/MM3 (150-450); RED BLOOD COUNT 5.07 MIL/MM3 (4.50-5.90); RED CELL DISTRIBUTION WIDTH 14.7 % (11.6-17.2); WHITE BLOOD COUNT 4.7 TH/MM3 (4.0-11.0)
[2016-10-12 07:23] LABS: BICARBONATE 26.7 MEQ/L (21.0-32.0); MAGNESIUM 2.1 MG/DL (1.5-2.5); POTASSIUM 3.8 MEQ/L (3.5-5.1)
[2016-10-12] MEDS: SODIUM CHLORIDE 0.9% FLUSH 10 ML FLUSH IV FLUSH SCH ×2 (07:55→21:01)
[2016-10-12] MEDS: guaiFENesin E.R. 600 MG TAB PO SCH ×2 (07:55→20:53)
[2016-10-12] MEDS: RESP: ACETYLCYSTEINE 20% 30 ML NEB NEB SCH ×4 (08:37→19:24)
[2016-10-12] MEDS: RESP: ALBUTEROL 2.5 MG/IPRATROPIUM 0.5 MG NEB (SCH) NEB ×3 (08:37→19:24)
--- NOTE | 2016-10-12 10:24 | RADRPT ---
EXAM DATE/TIME: 10/12/2016 09:22 [facility] COMPARISON: CT THORAX W/O CONTRAST, October 09, 2016, 19:09. CHEST PA & LAT, October 09, 2016, 8:23. INDICATIONS : Pneumonia. MEDICAL HISTORY : None. SURGICAL HISTORY : None. ENCOUNTER: Subsequent ACUITY: 4 - 6 days PAIN SCORE: 0/10 LOCATION: Bilateral chest FINDINGS: The heart is normal in size. There is atelectasis or infiltrate at the left lung base. This is unchan ged from previous exam. The right lung is clear. The visualized bony structures are intact. CONCLUSION: 1. Continued atelectatic changes/consolidation at the left base. Stable compared to prior exam. Timoteo Curtis MD on October 12, 2016 at 10:21 Board Certified Radiologist. This report was verified electronically.
[2016-10-12] MEDS: LEVOFLOXACIN 750 MG PREMIX INJ 150 ML IV SCH (11:28)
--- NOTE | 2016-10-12 15:31 | HHI.PR ---
Subjective Remarks feeling better. coughing improved. Pt denies fever. Objective Vitals Vital Signs Date Time Temp Pulse Resp B/P Pulse Ox O2 Delivery O2 Flow Rate FiO2 10/12/16 12:00 98.0 68 18 142/87 97 10/12/16 08:40 97 10/12/16 08:00 97.7 70 18 148/84 97 10/12/16 04:00 98.3 65 18 133/74 98 10/12/16 00:00 98.5 96 18 139/67 97 10/11/16 21:00 Room Air 10/11/16 20:00 98.6 82 18 150/96 97 10/11/16 16:00 99.0 78 20 147/84 96 10/11/16 10/11/16 10/12/16 15:00 23:00 07:00 Intake Total 720 ml 360 ml 240 ml Output Total 600 ml 600 ml Balance 720 ml -240 ml -360 ml Intake Oral 720 ml 360 ml 240 ml Output Urine Total 600 ml 600 ml # Voids 2 # Bowel Movements 0 0 Result Diagram: 10/12/16 0521 10/12/16 0521 Imaging Last Impressions Chest X-Ray 10/12/16 0800 Signed Impressions: Service Date/Time: Wednesday, October 12, 2016 09:22 - CONCLUSION: 1. Continued atelectatic changes/consolidation at the left base. Stable compared to prior exam. Timoteo Curtis MD Chest CT 10/09/16 0000 Signed Impressions: Service Date/Time: Sunday, October 09, 2016 19:09 - CONCLUSION: Severe left upper lobe airspace consolidation with trace left pleural fluid. Imaging findings are characteristic of an infectious process/pneumonia in the appropriate clinical setting. Suggest followup imaging to confirm resolution. Klaus Dallas MD Objective Remarks General: NAD Chest: improved, clear x b/l Cardiac: Regular Abd: +BS, soft ND/NT Ext: No edema A/P Problem List: (1) Pneumonia Status: Acute Plan: - Pt is 61 yo healthy male and no significant PMH - Pt traveled to [place] with family to a resort and traveled outside the resort 1d to hometown. - Denies any obvious sick contacts. - Returned home on 10/02 and developed headache, high fevers,body ache. - He was seen at another hospital and dx with sinusitis. Pt was on Augmentin/ Azithromycin. - He presented to the ED on 10/08 with persistent fever/body ache/now cough and sob/pneumonia - CXR (10/08) which appears to be progressive and involved both lung, but mostly left. - In the ED pt was given Azithromycin and Rocephin IV - Pt was started on Zosyn and Levaquin IV on 10/09 - Blood cultures (10/09) with NGTD - Sputum culture is ordered - Urine for Legionella and Step pneumoniae is negative. - CT Chest (10/09) --> Severe left upper lobe airspace consolidation with trace left pleural fluid. - CXR (10/12/16) --> stable left infiltrate - decrease Duonebs to Q6H WA and Mucomyst Q4H WA - Mucinex BID - if pt remains stable, anticipate d/c to home 10/13/16 - DVT prophylaxis with SCDs Christian Merlos DO Oct 12, 2016 15:31
[2016-10-12] MEDS: ZOLPIDEM TARTRATE 10 MG TAB PO PRN (22:02)
[2016-10-13] MEDS: PIPERACIL-TAZO 3.375 GM PREMIX 50 ML IV SCH ×3 (01:49→13:51)
[2016-10-13 04:28] VITALS: BP 128/68; PULSE 74; RESP 16; TEMP 98.2; O2SAT 97
[2016-10-13 08:00] VITALS: BP 152/87; PULSE 74; RESP 18; TEMP 97.7; O2SAT 97
[2016-10-13] MEDS: RESP: ACETYLCYSTEINE 20% 30 ML NEB NEB SCH ×2 (08:00→11:08)
[2016-10-13] MEDS: RESP: ALBUTEROL 2.5 MG/IPRATROPIUM 0.5 MG NEB (SCH) NEB ×2 (08:46→11:08)
[2016-10-13] MEDS: guaiFENesin E.R. 600 MG TAB PO SCH (09:38)
[2016-10-13] MEDS: SODIUM CHLORIDE 0.9% FLUSH 10 ML FLUSH IV FLUSH SCH (09:41)
[2016-10-13] MEDS ORDERED: LEVOFLOXACIN 750 MG TAB PO SCH (11:00)
[2016-10-13 12:00] VITALS: BP 148/89; PULSE 85; RESP 18; TEMP 98.2; O2SAT 95
[2016-10-13] MEDS ORDERED: guaiFENesin ER PO (12:57)
[2016-10-13] MEDS ORDERED: LEVA750T9 PO (12:57)
[2016-10-13] MEDS ORDERED: NEBULIZER/ADULT1 KIT (12:59)
[2016-10-13] MEDS ORDERED: ALBU0.08 NEB (12:59)
[2016-10-13] MEDS ORDERED: IPRA0.02 NEB (12:59)
--- NOTE | 2016-10-13 13:01 | HHI.DCPOC ---
Discharge Care Plan Diagnosis: (1) Pneumonia (2) Failure of outpatient treatment Goals to Promote Your Health * To prevent worsening of your condition and complications * To maintain your health at the optimal level Directions to Meet Your Goals Take your medications as prescribed Follow your dietary instruction Follow activity as directed Keep your appointments as scheduled Take your immunizations and boosters as scheduled If your symptoms worsen call your PCP, if no PCP go to Urgent Care Center or Emergency Room Smoking is Dangerous to Your Health. Avoid second hand smoke Call the 24-hour hour crisis hotline for domestic abuse at Devora Mo Oct 13, 2016 13:01 Christian Merlos DO Oct 14, 2016 16:13
--- NOTE | 2016-10-13 14:09 | HHI.DS ---
Discharge Summary Admission Date Oct 08, 2016 at 20:53 Discharge Date: Oct 13, 2016 Admitting Diagnosis pneumonia. Sinusitis. (1) Pneumonia Diagnosis: Principal Brief History 61-year-old male complaining generalized malaise and weakness dizziness fever or shortness of breath and body ache. Patient just returned from [place] on October 02. Patient started developing fever and body ache chills and generalized malaise 3 days ago. Patient was seen in the emergency room at [facility] in [facility] yesterday. Patient states that he had blood tests an x-ray done and CT scan which showed sinusitis. Patient was discharged and given prescription for Augmentin and according to patient percocet.. Patient was seen this morning in emergency room with worsening of the symptoms. Blood tests were done this morning and chest x-ray showed left lower lobe pneumonia. Patient was given Rocephin IV, IV fluid and discharged home with prescription for Zithromax. Patient states that he feeling worse this evening and started having nausea vomiting. Patient took the Zithromax prior coming to back to the emergency room. Patient states that he had fever up to 103 at home. Patient has been taking Advil for fever at home. Patient will be admitted for IV antibiotics and prn zofran and hold percocet which may becontributing to his symptoms . Patient states he takes sleeping pill at night. [facility] CBC/BMP: 10/12/16 0521 10/12/16 0521 Significant Findings Laboratory Tests Test 10/12/16 05:21 Hemoglobin 11.6 GM/DL (13.0-17.0) Hematocrit 35.2 % (39.0-51.0) Mean Corpuscular Volume 69.4 FL (80.0-100.0) Mean Corpuscular Hemoglobin 22.8 PG (27.0-34.0) Monocytes (%) (Auto) 18.0 % (0.0-8.0) Eosinophils (%) (Auto) 5.9 % (0.0-4.0) Creatinine 1.36 MG/DL (0.60-1.30) Estimat Glomerular Filtration 65 ML/MIN (>89) Rate Random Glucose 110 MG/DL (74-106) Imaging Last Impressions Chest X-Ray 10/12/16 0800 Signed Impressions: Service Date/Time: Monday, October 12, 2016 09:22 - CONCLUSION: 1. Continued atelectatic changes/consolidation at the left base. Stable compared to prior exam. Timoteo Curtis MD Chest CT 10/09/16 0000 Signed Impressions: Service Date/Time: Sunday, October 09, 2016 19:09 - CONCLUSION: Severe left upper lobe airspace consolidation with trace left pleural fluid. Imaging findings are characteristic of an infectious process/pneumonia in the appropriate clinical setting. Suggest followup imaging to confirm resolution. Klaus Dallas MD PE at Discharge General: NAD Chest: improved, clear x b/l Cardiac: Regular Abd: +BS, soft ND/NT Ext: No edema Hospital Course Pt is 61 yo healthy male and no significant PMH. Pt traveled to [place] with family to a resort and traveled outside the resort 1d to hometown. Denies any obvious sick contacts. Returned home on 10/02 and developed headache, high fevers,body ache. He was seen at another hospital and dx with sinusitis. Pt was on Augmentin/Azithromycin. He presented to the ED on 10/08 with persistent fever/ body ache/now cough and sob/pneumonia. CXR (10/08) which appears to be progressive and involved both lung, but mostly left. In the ED pt was given Azithromycin and Rocephin IV. Pt was started on Zosyn and Levaquin IV on 10/09. Blood cultures (10/09) with NGTD. Sputum culture was ordered but pt wasn't able to produce a sample. Urine for Legionella and Step pneumoniae was negative. CT Chest (10/09) --> Severe left upper lobe airspace consolidation with trace left pleural fluid. CXR (10/12/16) --> stable left infiltrate. The Duonebs were decreased to Q6H WA and Mucomyst Q4H WA on 10/12 and pt was continued on Mucinex BID. He has had clinical improvement and was weaned off supplemental O2. Pts Levaquin was converted to oral on 10/13. Pt ambulating without difficulty and stable for discharge to home on 10/13. Pt will complete 5 more days of Levaquin 750mg po daily He will continued on Duoneb breathing treatments Q6HWA for the next 4 days and then can decrease to as needed basis Pt will continue on the Mucinex 600mg BID for the next 7 days. He will need to followup with his PCP, Dr. Rodríguez, next week. He will need repeat imaging of his chest to ensure resolution of this large pneumonia. Pt Condition on Discharge: Stable Discharge Disposition: Discharge Home Discharge Instructions DIET: Follow Instructions for: Heart Healthy Diet Activities you can perform: Regular-No Restrictions Follow up Referrals: PCP Follow-up - [address] Rodríguez New Medications: Albuterol Neb (Albuterol Neb) 2.5 Mg/3 Ml Neb 2.5 MG NEB Q6HR While awake Breathing Treatment #1 Ref 0 BOX Ipratropium Neb (Ipratropium Neb) 0.5 Mg/2.5 Ml Amp 0.5 MG NEB Q6HR NEB Breathing Treatment #1 Ref 0 BOX Nebulizer/Adult Mask (Nebulizer/Adult Mask) 1 Kit Kit 1 KIT .ROUTE DIRECTED Breathing Treatment #1 Ref 0 KIT Levofloxacin (Levaquin) 750 Mg Tablet 750 MG PO Q24H Pneumonia #5 TAB ([guaiFENesin ER]) 600 MG TABCR 600 MG PO BID Pneumonia Days 7 TAB.SR Additional Information Patient examined. Assessment and plan formulated with Devora Mo PA-C. I agree with the above. Devora Mo Oct 13, 2016 14:09 Christian Merlos DO Oct 14, 2016 16:13
== END 2016-10-13 16:30 | disposition home or self-care (01) | DRG 195 ==
LOC: NEPD 17:20 → NEDA 20:53 → N04A 22:25
PROVIDERS: ADMIT Hospitalist; ATTEND Hospitalist
DX: J18.9 Pneumonia, unspecified organism (principal); J32.9 Chronic sinusitis, unspecified; R52 Pain, unspecified
CPT/HCPCS: 71010; 71020; 71250; 76937; 80048; 80053; 81001; 83605; 83690; 83735; 85025; 85610; 85730; 87040; 87205; 87449; 87804; 93005; 94640; 94664; 96361; 96374; 96375; J0456; J0696; J1885; J1956; J2270; J2405; J2543; J7030; J7050; J7608